=== PATIENT | female | born 1955 | race Caucasian/White ===

== ENCOUNTER 2022-10-20 21:25 | Emergency (ER) | payer MEDICARE ==
[2022-10-20] MEDS ORDERED: Penicillin V Potassium 250 MG Tab PO ONE (21:26)
[2022-10-20] MEDS ORDERED: Acetaminophen/HYDROcodone 325-5 MG Tab PO ONE (21:26)
[2022-10-20] MEDS: Sodium Chloride 0.9% 10 ML Syringe FLUSH PRN ×3 (22:20→22:55)
[2022-10-20 22:36] LABS: ESTIMATED GFR 94 mL/min (>60)
== END 2022-10-20 23:17 | disposition home or self-care (01) ==
LOC: FB.ED 21:25
DX: K04.7 Periapical abscess without sinus (principal); Z91.048 Other nonmedicinal substance allergy status
CPT/HCPCS: 80048; 85025; 99283; A9270; J1642; J3490